=== PATIENT | male | born 2000 | race American Indian/Alaskan Native ===

== ENCOUNTER 2021-09-19 15:26 | Emergency (ER) | payer SELFPAY ==
[2021-09-19] MEDS ORDERED: IBUPROFEN 800 MG TAB PO ONE (15:44)
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
[2021-09-19 17:12] VITALS: BP 132/74
[2021-09-20] MEDS ORDERED: SODIUM CHLORIDE 0.9% 1000 ML 1,000 ML ONE (11:02)
== END 2021-09-19 17:12 | disposition home or self-care (01) ==
LOC: ED 15:26
DX: S39.012A Strain of muscle, fascia and tendon of lower back, initial encounter (principal); V49.49XA Driver injured in collision with other motor vehicles in traffic accident, initial encounter; Y93.89 Activity, other specified; Y92.89 Other specified places as the place of occurrence of the external cause; Y99.8 Other external cause status
CPT/HCPCS: 72100; 99283; Q0162; J7030

== ENCOUNTER 2022-05-08 11:56 | Emergency (ER) | payer OTHER ==
[2022-05-08 12:37] VITALS: BP 147/103
--- NOTE | 2022-05-08 12:38 | Emergency Department Report ---
ED Lower Extremity HPI - General Chief Complaint: Extremity Injury, Lower Stated Complaint: SPRAIN ANKLE Time Seen by Provider: 05/08/22 12:37 Source: patient Mode of arrival: Ambulatory Limitations: No Limitations - History of Present Illness Initial Comments: Patient is a 21-year-old male comes to the ER with right ankle pain after rolling it while playing basketball. He is complaining of pain in the medial surface. He is ambulatory but with a limp. Denies other injury. Patient's blood pressure noted to be elevated on admission. He states that his ankle hurts. He took nothing for pain prior to arrival. He has no history of hypertension. He denies any chest pain or shortness of breath. MD Complaint: ankle injury -: Sudden, days(s) Injury: Ankle: Right Type of Injury: unknown Place: home Severity: mild Severity scale (0 -10): 2 Context: other - Related Data Previous Rx's Medication Instructions Recorded Last Taken Type Cyclobenzaprine [Flexeril] 10 mg PO QHS PRN #10 tablet 09/19/21 Unknown Rx Naproxen 500 mg PO Q12H PRN #12 tablet 09/19/21 Unknown Rx Allergies Allergy/AdvReac Type Severity Reaction Status Date / Time No Known Allergies Allergy Unverified 09/19/21 15:36 ED Review of Systems ROS: Stated complaint: SPRAIN ANKLE Other details as noted in HPI Comment: All other systems reviewed and negative ED Past Medical Hx - Past Medical History Previous Medical History?: No - Surgical History Past Surgical History?: No - Family History Family history: no significant - Social History Smoking Status: Never Smoker Substance Use Type: None - Medications Home Medications: Home Medications Medication Instructions Recorded Confirmed Last Taken Type Cyclobenzaprine [Flexeril] 10 mg PO QHS PRN #10 tablet 09/19/21 Unknown Rx Naproxen 500 mg PO Q12H PRN #12 tablet 09/19/21 Unknown Rx ED Physical Exam - General Limitations: No Limitations General appearance: alert, in no apparent distress - Head Head exam: Present: atraumatic, normocephalic - Eye Eye exam: Present: normal appearance - ENT ENT exam: Present: mucous membranes moist - Neck Neck exam: Present: normal inspection - Respiratory Respiratory exam: Present: normal lung sounds bilaterally. Absent: respiratory distress - Cardiovascular Cardiovascular Exam: Present: regular rate, normal rhythm. Absent: systolic murmur, diastolic murmur, rubs, gallop - GI/Abdominal GI/Abdominal exam: Present: soft, normal bowel sounds - Rectal Rectal exam: Present: deferred - Extremities Exam Extremities exam: Present: normal inspection - Back Exam Back exam: Present: normal inspection - Neurological Exam Neurological exam: Present: alert, oriented X3 - Psychiatric Psychiatric exam: Present: normal affect, normal mood - Skin Skin exam: Present: warm, dry, intact, normal color. Absent: rash ED Course Vital Signs 05/08/22 05/08/22 12:36 12:37 Temperature 98.4 F Pulse Rate 80 Respiratory 18 Rate Blood Pressure 147/103 O2 Sat by Pulse 91 98 Oximetry ED Lower Extremity MDM - Radiology Data Radiology results: report reviewed, image reviewed NO FX - Medical Decision Making Vital Signs 05/08/22 05/08/22 12:36 12:37 Temperature 98.4 F Pulse Rate 80 Respiratory 18 Rate Blood Pressure 147/103 O2 Sat by Pulse 91 98 Oximetry Patient's ankle wrapped with an Tip and he is placed on crutches for nonweightbearing. He has soft tissue swelling and pain of the lateral malleolar area. No fracture on x-ray. Distal circulation is intact with good pedal and posterior tibial pulses. Rapid cap refill. Full range of motion of distal extremity Patient medicated for pain. Patient educated on rice treatment. Patient being discharged home with discharge plan of care including diet, activity, medications and follow-up. He verbalizes understanding of plan of care including follow-up with orthopedics. Vital Signs 05/08/22 05/08/22 12:36 12:37 Temperature 98.4 F Pulse Rate 80 Respiratory 18 Rate Blood Pressure 147/103 O2 Sat by Pulse 91 98 Oximetry DC BP 150/90 - Differential Diagnosis RO FX Critical care attestation.: If time is entered above; I have spent that time in minutes in the direct care of this critically ill patient, excluding procedure time. ED Disposition Clinical Impression: Ankle sprain Qualifiers: Encounter type: initial encounter Involved ligament of ankle: unspecified ligament Laterality: right Qualified Code(s): S93.401A - Sprain of unspecified ligament of right ankle, initial encounter Disposition: HOME / SELF CARE / HOMELESS Is pt being admited?: No Does the pt Need Aspirin: No Condition: Stable Additional Instructions: REST- ICE AND ELEVATE FOR THE PAIN MOTRIN OR TYLENOL FOR PAIN IF NEEDED FOLLOW UP WITH ORTHO KATHLEEN FOR REEVAL REFERRAL BELOW TIP WRAP FOR COMFORT CRUTCHES FOR NON WEIGHT BEARING TO ALLOW ANKLE TIME TO HEEL Referrals: KARIE TRAMMELL MD [Staff Physician] - 3-5 Days Forms: Work/School Release Form(ED) Time of Disposition: 13:13
--- NOTE | 2022-05-08 13:13 | XRay Report ---
RIGHT ANKLE 3 INDICATION: pain sp fall. COMPARISON: None. IMPRESSION: There is moderate diffuse soft tissue swelling. No acute osseous injury or significant joint pathology is detected. Signer Name: Elia Delarosa Jr, MD Signed: 05/08/2022 1:08 PM Workstation Name: [id number]
[2022-05-08] MEDS ORDERED: ACETAMINOPHEN 500 MG TAB PO ONE (13:15)
== END 2022-05-08 13:50 | disposition home or self-care (01) ==
LOC: ED 11:56
DX: S93.401A Sprain of unspecified ligament of right ankle, initial encounter (principal); X58.XXXA Exposure to other specified factors, initial encounter; Y93.89 Activity, other specified; Y92.89 Other specified places as the place of occurrence of the external cause; Y99.8 Other external cause status
CPT/HCPCS: 99283